=== PATIENT | female | born 2005 | race Caucasian/White ===

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

== ENCOUNTER 2024-01-06 22:58 | Emergency (ER) | payer BC ==
[~2024-01-06] VITALS: Ht 167.6 cm; Wt 63.6 kg
[2024-01-06 23:02] VITALS: BP 119/78; PULSE 82; TEMP 98
== END 2024-01-06 23:29 | disposition home or self-care (01) ==
LOC: COL.ER 22:58
DX: S61.211A Laceration without foreign body of left index finger without damage to nail, initial encounter (principal); W26.0XXA Contact with knife, initial encounter; Y92.000 Kitchen of unspecified non-institutional (private) residence as the place of occurrence of the external cause